=== PATIENT | male | born 2000 | race American Indian/Alaskan Native ===

== ENCOUNTER 2023-11-11 02:16 | Emergency (ER) | payer OTHER, SELFPAY ==
[2023-11-11 03:46] LABS: #Monocytes 0.4 thou/uL (0.11-0.59); #Neutrophils 6.7 thou/uL (1.40-6.50); %Basophils 0.2 % (0.0-1.0); %Lymphocytes 11.5 % (21.0-51.0); %Monocytes 5.3 % (0.0-10.0); %Neutrophils 82.8 % (42.0-75.0); Hematocrit 42.1 % (42.0-52.0); Hemoglobin 13.6 g/dL (14.0-18.0); Mean Corpuscular HGB CONC 32.3 g/dL (32.0-36.0); Mean Corpuscular Hemoglobin 26.1 pg (27.0-31.0); Mean Corpuscular Volume 80.7 fl (78.0-98.0); Mean Platelet Volume 11.3 fL (7.4-10.4); Platelet Count 234 10x3/uL (130-400); RBC Distribution Width 13.8 % (11.5-14.5); Red Blood Cell (RBC) Count 5.22 mill/uL (4.70-6.10); White Blood Cell (WBC) Count 8.1 10x3/uL (4.8-10.8)
[2023-11-11 04:11] LABS: ALT (SGPT) 33 U/L (8-55); AST (SGOT) 17 U/L (5-34); Acetaminophen Less than 10 mcg/mL (10.0-30.0); Albumin 4.1 g/dL (3.5-5.0); Alcohol 94.2 mg/dL (Less than 10); Alkaline Phosphatase 35 U/L (40-110); Anion Gap 14 mmol/L (10-20); BUN (Urea Nitrogen) 8 mg/dL (8.9-20.6); Bilirubin, Total 0.2 mg/dL (0.2-1.2); Calc. Creatinine Clearance 0 mL/min (70-130); Calcium 8.3 mg/dL (7.8-10.44); Carbon Dioxide 19 mmol/L (22-29); Chloride 110 mmol/L (98-107); Estimated GFR 131; Globulin 2.9 g/dL (2.4-3.5); Glucose 116 mg/dL (70-105); Potassium 3.9 mmol/L (3.5-5.1); Salicylate Less than 8.0 mg/dL (15.0-30.0); Sodium 139 mmol/L (136-145)
[2023-11-11] MEDS ORDERED: dilTIAZem 25 MG/5 ML VIAL ONE ×2 (04:44→05:12)
[2023-11-11] MEDS ORDERED: Magnesium 2 GM/50 ML BAG (IN WATER) ONE (04:58)
[2023-11-11 05:11] LABS: Magnesium 1.8 mg/dL (1.6-2.6)
[2023-11-11 05:59] LABS: Amphetamine Not Detected (NotDetected); Barbiturates Screen Not Detected (NotDetected); Benzodiazepine Screen Not Detected (NotDetected); Cocaine Metabolite Screen Not Detected (NotDetected); Methadone Not Detected (NotDetected); Methamphetamine Not Detected (NotDetected); Opiate Screen Not Detected (NotDetected); Oxycodone Screen Not Detected (NotDetected); Phencyclidine (PCP) Not Detected (NotDetected); THC/Cannabinoid Screen Not Detected (NotDetected); Tricyclic Screen Not Detected (NotDetected)
[2023-11-11] MEDS ORDERED: dilTIAZem 125 MG/25 ML SDV ONE (06:01)
[2023-11-11 06:36] LABS: Troponin I Less than 0.010 ng/mL (< 0.028)
[2023-11-11] MEDS ORDERED: dilTIAZem CD 120 MG CAP PO SCH (08:00)
[2023-11-11] MEDS ORDERED: Ondansetron PF 4 MG/2 ML Vial ONE (08:37)
[2023-11-11] MEDS ORDERED: Metoclopramide HCl 10 MG (2 mL) VIAL ONE (09:27)
== END 2023-11-11 10:25 | disposition home or self-care (01) ==
LOC: ERS 02:16
DX: F10.129 Alcohol abuse with intoxication, unspecified (principal); I48.91 Unspecified atrial fibrillation; Y90.4 Blood alcohol level of 80-99 mg/100 ml
CPT/HCPCS: 36415; 70450; 80306; 80307; 83690; 83735; 84443; 84484; 85025; 93005; 94760; 96361; 96365; 96375; J2405; J2765; J3475